=== PATIENT | female | born 1975 | race African-American/Black ===

== ENCOUNTER 2017-03-25 08:58 | Emergency (ER) | payer OTHER ==
[~2017-03-25] VITALS: Ht 160 cm; Wt 85.0 kg
[~2017-03-25 08:58] MED LIST: ALEVE220 MG PO; ASPIRIN325 MG PO; BACTRIM DS1 TAB PO; CLEOCIN VAG2 % VA; DARVOCET N-100100 - OR; LORTAB 5/3255 MG PO; LOTRISONE EX; MULTIVITAM10 OR; NEXIUM40 MG PO; NO HOME MEDS; PENICILLIN V P250 MG OR; SULFACET SOD10 % OS; TRIMOX500 MG PO; ZITHROMAX250 MG OR
[2017-03-25] MEDS ORDERED: NAPROSYN500 MG PO (10:15)
[2017-03-25 10:31] VITALS: BP 122/77
== END 2017-03-25 10:44 | disposition home or self-care (01) | DRG 563 ==
LOC: ED 08:58
DX: S53.401A Unspecified sprain of right elbow, initial encounter (principal); X58.XXXA Exposure to other specified factors, initial encounter

== ENCOUNTER 2017-04-11 18:31 | Emergency (ER) | payer OTHER ==
[~2017-04-11] VITALS: Ht 160 cm; Wt 88.0 kg
[~2017-04-11 18:31] MED LIST changes: +NAPROSYN500 MG PO
[2017-04-11 19:34] LABS: HEMATOCRIT 43.3 % (37.0-47.0); HEMOGLOBIN 14.4 g/dl (12.0-16.0); IMMATURE GRANULOCYTES 0.3 % (0.0-1.0); MEAN CELL VOLUME 86.4 fL CALC (80.0-100.0); MEAN CORPUSCULAR HGB 28.7 pG CALC (26.0-32.0); MEAN CORPUSCULAR HGB CONC 33.3 g/L CALC (32.0-36.0); NEUT# 5.51 thou/uL (2.00-7.15); RED BLOOD COUNT 5.01 mill/uL (4.20-5.60)
[2017-04-11 19:45] LABS: ALBUMIN 4.2 g/dL (3.2-5.0); ALKALINE PHOSPHATASE 99 u/l (38-126); AMYLASE 95 u/l (30-110); ANION GAP 18 (6-22 (CALC)); BILIRUBIN, TOTAL 0.5 mg/dL (0.0-1.4); BUN 12 mg/dL (7-17); BUN/CREATININE RATIO 15 (12-20 (CALC)); CALCIUM 9.4 mg/dL (8.4-10.2); CARBON DIOXIDE 23 mmol/l (22-30); CHLORIDE 105 mmol/l (95-108); CREATININE 0.8 mg/dL (0.5-1.0); GFR > 60 ML/MIN (>=60 (CALC)); GFR FOR AFR.AMER. > 60 ML/MIN (>=60 (CALC)); GLUCOSE 116 mg/dL (65-105); LIPASE 77 u/l (23-300); POTASSIUM 3.9 mmol/l (3.5-5.1); SGOT/AST 21 u/l (14-36); SGPT/ALT 30 u/l (9-52); SODIUM 142 mmol/l (137-146); TOTAL PROTEIN 7.7 g/dL (6.3-8.2)
[2017-04-11] MEDS ORDERED: ZOFRAN ODT4 MG PO (19:51)
[2017-04-11] MEDS ORDERED: PREVACID30 M3 PO (19:51)
[2017-04-11 20:00] VITALS: BP 120/70
== END 2017-04-11 20:28 | disposition home or self-care (01) | DRG 392 ==
LOC: ED 18:31
PROVIDERS: Emergency Medicine
DX: R10.13 Epigastric pain (principal); K29.70 Gastritis, unspecified, without bleeding; R50.9 Fever, unspecified; R11.0 Nausea; R19.7 Diarrhea, unspecified
CPT/HCPCS: S0164

== ENCOUNTER 2017-12-07 07:58 | Emergency (ER) | payer OTHER ==
[~2017-12-07] VITALS: Ht 162.6 cm; Wt 92.0 kg
[~2017-12-07 07:58] MED LIST changes: +PREVACID30 M3 PO; +ZOFRAN ODT4 MG PO
[2017-12-07] MEDS ORDERED: VOLTAREN1%GEL TOP (08:39)
[2017-12-07] MEDS ORDERED: AMOXICILLIN500 M2 PO (08:39)
[2017-12-07] MEDS ORDERED: CYCLOBENZAPR5 MG PO (10:17)
[2017-12-07] MEDS ORDERED: ASPERCREME LIDOCA41 TOP (10:18)
[2017-12-07 10:33] VITALS: BP 123/72
== END 2017-12-07 10:33 | disposition home or self-care (01) | DRG 153 ==
LOC: ED 07:58
DX: J02.0 Streptococcal pharyngitis (principal); M62.830 Muscle spasm of back; E11.9 Type 2 diabetes mellitus without complications

== ENCOUNTER → 2018-07-07 | Outpatient (REF) ==
[~2018-07-07] MED LIST changes: +AMOXICILLIN500 M2 PO; +ASPERCREME LIDOCA41 TOP; +CYCLOBENZAPR5 MG PO; +VOLTAREN1%GEL TOP
== END | disposition home or self-care (01) | DRG 639 ==
LOC: LAB 08:50
PROVIDERS: ATTEND Physician Assistant
DX: E11.9 Type 2 diabetes mellitus without complications (principal); E78.00 Pure hypercholesterolemia, unspecified; E66.9 Obesity, unspecified; Z01.411 Encounter for gynecological examination (general) (routine) with abnormal findings

== ENCOUNTER 2020-12-09 16:14 | Emergency (ER) | payer OTHER ==
[2020-12-09 17:17] VITALS: BP 118/83
== END 2020-12-09 17:23 | disposition home or self-care (01) | DRG 204 ==
LOC: ED 16:14
DX: R05 Cough (principal); E11.9 Type 2 diabetes mellitus without complications; Z20.822 Contact with and (suspected) exposure to COVID-19

== ENCOUNTER 2020-12-18 15:32 | Emergency (ER) | payer OTHER ==
[2020-12-18 17:38] LABS: HEMATOCRIT 41.4 % (37.0-47.0); HEMOGLOBIN 13.7 g/dl (12.0-16.0); IMMATURE GRANULOCYTES 0.2 % (0.0-5.0); MEAN CELL VOLUME 86.1 fL CALC (80.0-100.0); MEAN CORPUSCULAR HGB 28.5 pG CALC (26.0-32.0); MEAN CORPUSCULAR HGB CONC 33.1 g/dL CAL (32.0-36.0); NEUT# 3.97 thou/uL (2.00-7.15); RED BLOOD COUNT 4.81 mill/uL (4.20-5.60); RED CELL DISTRI WIDTH 12.3 % (11.5-15.5)
[2020-12-18 17:51] LABS: HCG SERUM/URINE (NEG/POS) NEGATIVE (NEGATIVE)
[2020-12-18 17:51] LABS: ALKALINE PHOSPHATASE 66 u/l (38-126); BILIRUBIN, TOTAL 0.5 mg/dL (0.0-1.4); BUN 12 mg/dL (7-17); BUN/CREATININE RATIO 12 (12-20 (CALC)); CARBON DIOXIDE 26 mmol/l (22-30); CHLORIDE 97 mmol/l (95-108); GFR 59 ML/MIN (>=60 (CALC)); GFR FOR AFR.AMER. > 60 ML/MIN (>=60 (CALC)); POTASSIUM 3.7 mmol/l (3.5-5.1); TOTAL PROTEIN 8.2 g/dL (6.3-8.2)
[2020-12-18 17:52] LABS: ANION GAP 14 (6-22 (CALC)); SGOT/AST 50 u/l (14-36); SODIUM 133 mmol/l (137-146)
[2020-12-18 18:00] VITALS: BP 132/74
== END 2020-12-18 18:49 | disposition home or self-care (01) | DRG 179 ==
LOC: ED 15:32
PROVIDERS: Family Medicine
DX: U07.1 COVID-19 (principal); E11.9 Type 2 diabetes mellitus without complications

== ENCOUNTER 2020-12-24 13:20 | Inpatient (IN) | payer OTHER ==
[~2020-12-24] VITALS: Ht 162.6 cm; Wt 182.0 kg
--- NOTE | 2020-12-24 13:52 | NUR ---
TRIAGED IN WAITING AREA.
[2020-12-24 14:27] LABS: HEMATOCRIT 42.7 % (37.0-47.0); HEMOGLOBIN 14.1 g/dl (12.0-16.0); IMMATURE GRANULOCYTES 0.5 % (0.0-5.0); MEAN CELL VOLUME 85.4 fL CALC (80.0-100.0); MEAN CORPUSCULAR HGB 28.2 pG CALC (26.0-32.0); NEUT# 5.12 thou/uL (2.00-7.15); RED CELL DISTRI WIDTH 12.3 % (11.5-15.5)
[2020-12-24 14:41] LABS: D-DIMER 0.89 mg/L (0.19-0.60)
[2020-12-24 14:42] LABS: ALKALINE PHOSPHATASE 75 u/l (38-126); ANION GAP 14 (6-22 (CALC)); BUN 18 mg/dL (7-17); BUN/CREATININE RATIO 17 (12-20 (CALC)); CARBON DIOXIDE 29 mmol/l (22-30); CHLORIDE 92 mmol/l (95-108); CREATININE 1.1 mg/dL (0.5-1.0); GFR 53 ML/MIN (>=60 (CALC)); GFR FOR AFR.AMER. > 60 ML/MIN (>=60 (CALC)); LIPASE 238 u/l (23-300); POTASSIUM 3.3 mmol/l (3.5-5.1); SGOT/AST 52 u/l (14-36); SODIUM 132 mmol/l (137-146); TOTAL PROTEIN 8.4 g/dL (6.3-8.2)
[2020-12-24 14:43] LABS: BILIRUBIN, TOTAL 0.9 mg/dL (0.0-1.4)
[2020-12-24 14:54] LABS: ACT PARTIAL THROMBO TIME 25.7 SECONDS (20.0-32.5); INTERNATIONAL NORMALIZED RATIO 1.1 RATIO (0.7-1.3); PROTHROMBIN TIME 11.6 SECONDS (9.0-12.5)
[2020-12-24] MEDS ORDERED: VITAMIN E400 UNIT PO (16:10)
[2020-12-24] MEDS ORDERED: VITAMIN C1000 MG PO (16:11)
[2020-12-24] MEDS ORDERED: FISH OIL1000 MG PO (16:11)
[2020-12-24] MEDS ORDERED: VITAMIN D1000 UNIT PO (16:11)
[2020-12-24] MEDS ORDERED: METFORMIN HCL1000 MG PO (16:12)
--- NOTE | 2020-12-24 17:00 | NUR ---
PATIENT FOUND IN BATHROOM COUGHING AND SHORT OF BREATH. WC WITH O2 BROUGHT TO BATHROOM. O2 APPLIED TO PATIENT. PATIENT WAS ABLE TO CATCH BREATH. PATIENT FINISHED IN THE BATHROOM AND WAS ASSISTED BACK TO ROOM AND PLACED BACK ON MONITOR. PATIENT STATES SHE IS FEELING BETTER.
--- NOTE | 2020-12-24 19:09 | NUR ---
REPORT TO SHARYN ROBBINS
--- NOTE | 2020-12-24 19:30 | NUR ---
PATIENT ARRIVES VIA WHEELCHAIR ACCOMPANIED BY TAX PROCESSOR GABINO, ON 2 L/MIN NC. VEGA SBECOME SOB WITH EXERTION AND HAS A CERTIFIED FIRST ASSISTANT COUGH. IS ABLE TO WALK TO THE BED. LAYS WITH HOB AT 30 DEGREES. NURSE ASSESSMENT PERFORMED. IS ALERT AND ORIENTED X4. NURSE ASSESMENT PERFORMED. NO EDEMA NOTED TO EXTREMETIES, SKIN IS DRY/WARM/INTACT. STRONG PULSES PRESENT. ACTIVE BS. DOES HAVE CRACKLES TO LOWER LOBE POSTERIOR BASES. BP WNL, SPO2 95% ON 2 L/MIN NC, DOES DESAT TO 90% WHEN HAS COUGH. WEARS GLASSES, IS INDEPENDENT AT HOME, LIVES WITH BROTHER, FEELS SAFE. WAS HERE LAST WEEK AND WAS POSITIVE WITH COVID. DOES HAVE STRESS INCONTINENCE, REQUESTS FOR TOWEL TO BE PLACED IN BETWEEN LEGS. ADVERSE REACTION WITH CAFFEINE, RAISES HER HEART RATE. ONLY MEDICATION IS METFORMIN. POC DISCUSSED. ENCOURAGED LAYING PRONE, HYDRATING AND EATING. IS DIABETIC. RAC IV INTACT, SALINE LOCKED. CALL LIGHT WITHIN REACH. EDUACTED ON SAFETY PRECAUTIONS. SELF REPOSITIONS.
--- NOTE | 2020-12-24 19:34 | NUR ---
PATIENT TAKEN BY FINAL INSPECTOR TRUCK TRAILER GABINO FRANCIS, PT AAOX4, ON O2, NO DISTRESS.
[2020-12-24 20:00] VITALS: BP 125/74
[2020-12-24 22:00] VITALS: BP 121/75
--- NOTE | 2020-12-24 22:37 | NUR ---
ACCUCHECK OBTAINED, PATIENT REQUESTED A BEDTIME SNACK. PROVIDED CRACKERS AND DIET OGLALA [place] [employer], ALSO REQUESTED ICE, PROVIDED. NO ACUTE DISTRESS SHOWN. PT DOES HAVE STRESS INCONTINENCE. CALL LIGHT WITHIN REACH.
[2020-12-24 23:00] VITALS: BP 99/52
[2020-12-25] VITALS (21 sets, daily range): BP systolic 102–131; BP diastolic 63–78
--- NOTE | 2020-12-25 00:34 | NUR ---
PATIENT BEGINS TO COUGH CONTINUOSLY, HR ST LOW 100'S. SPO2 DROPS TO LOW 80'S. PATIENT WAS ASSITED TO LAY BACK IN PRONE POSITION. O2 TITRATED TO 4 L/MIN NC, SPO2 NOW 93%. WILL CONTINUE TO MONITOR.
--- NOTE | 2020-12-25 01:51 | NUR ---
PATIENT LAYS PRONE. NO ACUTE DISTRESS SHOWN, SPO2 100%. SR ON TELEMETRY, BP WNL. CALL LIGHT WITHIN REACH.
--- NOTE | 2020-12-25 03:05 | NUR ---
PATIENT TICKET COUNTER LIGHT, REQUESTS TO USE BSC. VOIDED YELLOW/CLEAR URINE. STRESS INCONTINENCE CONTINUES. PATIETN BEGINS WITH A CONTNUOUS COUGH, DOES DESAT TO 80'S. COUGH MEDICAION PROVIDED. LAYS PRONE, CONTINUES TO BE ON 4 L/MIN NC. AFEBRILE. CALL LIGHT WITHIN REACH.
--- NOTE | 2020-12-25 05:25 | NUR ---
PATIENT LAYS IN PRONE AND REQUESTS TO SIT UP. NOW LAYS IN HIGH SUAREZ'S. HUMIDIFIER ADDED TO NASAL CANNULA, O2 WEANED TO 3 L/MIN. INCENTIVE SPIROMETER PROVIDED AND PATIENT WAS EDUCATED, PATIENT UNDERSTANDS AND AGREES. ICED WATER PROVIDED PER REQUEST.
[2020-12-25 07:53] LABS: HEMATOCRIT 38.8 % (37.0-47.0); HEMOGLOBIN 12.7 g/dl (12.0-16.0); MEAN CELL VOLUME 86.6 fL CALC (80.0-100.0); MEAN CORPUSCULAR HGB 28.3 pG CALC (26.0-32.0); MEAN CORPUSCULAR HGB CONC 32.7 g/dL CAL (32.0-36.0); NEUT# 2.3 thou/uL (2.00-7.15); RED BLOOD COUNT 4.48 mill/uL (4.20-5.60); RED CELL DISTRI WIDTH 12.3 % (11.5-15.5)
[2020-12-25 08:35] LABS: ALBUMIN 3.4 g/dL (3.2-5.0); ALKALINE PHOSPHATASE 65 u/l (38-126); BILIRUBIN, TOTAL 0.6 mg/dL (0.0-1.4); BUN 16 mg/dL (7-17); BUN/CREATININE RATIO 23 (12-20 (CALC)); CARBON DIOXIDE 27 mmol/l (22-30); CHLORIDE 96 mmol/l (95-108); CREATININE 0.7 mg/dL (0.5-1.0); GFR > 60 ML/MIN (>=60 (CALC)); GFR FOR AFR.AMER. > 60 ML/MIN (>=60 (CALC)); SGOT/AST 38 u/l (14-36); SODIUM 133 mmol/l (137-146); TOTAL PROTEIN 6.9 g/dL (6.3-8.2)
[2020-12-25 08:48] LABS: ANION GAP 14 (6-22 (CALC))
[2020-12-25 08:49] LABS: C-REACTIVE PROTEIN 13.4 mg/dL (0-0.9)
--- NOTE | 2020-12-25 10:10 | NUR ---
PT REMAINS IN ICU ON 4 LITER NASAL CANNULA. SATS ARE 93% ON 4 LITERS.
[2020-12-25] MEDS ORDERED: GABAPENTIN300 M2 PO (11:04)
[2020-12-25] MEDS ORDERED: VITAMIN D1.25 MG PO (11:12)
[2020-12-25] MEDS ORDERED: FARXIGA10 MG PO (11:48)
[2020-12-25] MEDS ORDERED: LIPITOR40 M1 PO (11:49)
--- NOTE | 2020-12-25 12:29 | NUR ---
PT IS IN ICU ON 2 LITER NASAL CANNULA. SATS OF 94%
--- NOTE | 2020-12-25 15:49 | NUR ---
PT IS BEING MONITORED IN ICU ON 2 LITER NASAL CANNULA. SATS 95%.
--- NOTE | 2020-12-25 19:15 | NUR ---
RECIEVED REPORT FROM DAY RN, PT A AND O SITTING UP IN BED, NO S/S OF DISTRESS NOTED, DENIES ANY CURRENT NEEDS
--- NOTE | 2020-12-25 21:06 | NUR ---
REPORT CALLED TO SHARYN ESTEVEZ ON MED SURG
--- NOTE | 2020-12-25 21:45 | NUR ---
PATIENT BROUGHT TO [facility] FROM ICU. TRANSFERRED TO ROOM 288.
--- NOTE | 2020-12-25 22:35 | NUR ---
ASSESSMENT DONE AT THIS TIME. PATIENT ALERT AND ORIENTED. ABLE TO MAKE NEEDS KNOWN. IV SITE TO RT AC PATENT. IV FLUIDS RESTARTED PER ORDER AT 100ML/HR. NEW PUREWICK PUT IN PLACE BY [employer] COMMUNICATIONS FACULTY MEMBER. VITAL SIGNS WERE ALSO TAKEN BY [employer] COMMUNICATION[employer] FACULTY MEMBER. PATIENT RECEIVED COUGH MEDICATION PER REQUEST. PATIENT DOES HAS A NON PRODUCTIVE COUGH PRESENT. O2 REMAINS AT 3L VIA NC. BED IN LOWEST POSITION. CALL LIGHT AND BELONGINGS WITHIN REACH.
[2020-12-26 00:55] VITALS: BP 110/68
--- NOTE | 2020-12-26 03:25 | NUR ---
GAVE PATIENT ICE PER REQUEST AND SMALL SNACK. REPOSITIONED PUREWICK. GAVE PATIENT FRESH NEW TOWEL PER REQUEST. CALL LIGHT WITHIN REACH.
--- NOTE | 2020-12-26 03:30 | NUR ---
PATIENT RESTING IN BED AT THIS TIME WITH O2 VIA NASAL CANNULA IN PLACE AT 2LPM. PATIENT STATES THAT SHE IS FEELING BETTER THAN WHEN SHE CAME IN BUT STILL HAS BAD COUGH. IV SITE TO RAC REDRESS-SITE REMAINS HEALTHY WITH IVF PATENT AND INFUSING ORDERED. PATIENT REMAINS ON ISOLATION FOR COVID. PROVIDED WITH SNACK PER PATIENT REQUEST. CALL LIGHT IN REACH. WILL CONT TO MONITOR.
[2020-12-26 04:00] VITALS: BP 111/52
[2020-12-26 05:50] LABS: HEMATOCRIT 37.5 % (37.0-47.0); HEMOGLOBIN 12.1 g/dl (12.0-16.0); IMMATURE GRANULOCYTES 1.4 % (0.0-5.0); MEAN CELL VOLUME 87.6 fL CALC (80.0-100.0); MEAN CORPUSCULAR HGB 28.3 pG CALC (26.0-32.0); MEAN CORPUSCULAR HGB CONC 32.3 g/dL CAL (32.0-36.0); NEUT# 3.35 thou/uL (2.00-7.15); RED BLOOD COUNT 4.28 mill/uL (4.20-5.60); RED CELL DISTRI WIDTH 12.3 % (11.5-15.5)
[2020-12-26 06:07] LABS: ANION GAP 9 (6-22 (CALC)); BUN 14 mg/dL (7-17); BUN/CREATININE RATIO 19 (12-20 (CALC)); C-REACTIVE PROTEIN 3.9 mg/dL (0-0.9); CARBON DIOXIDE 31 mmol/l (22-30); CHLORIDE 100 mmol/l (95-108); CREATININE 0.7 mg/dL (0.5-1.0); GFR > 60 ML/MIN (>=60 (CALC)); GFR FOR AFR.AMER. > 60 ML/MIN (>=60 (CALC)); POTASSIUM 3.5 mmol/l (3.5-5.1); SODIUM 136 mmol/l (137-146)
[2020-12-26 07:30] VITALS: BP 115/72
--- NOTE | 2020-12-26 07:30 | NUR ---
PATIENT RESTING IN BED AT THIS TIME. DOCTOR OF DENTAL SURGERY DONE SEE INTERVENTIONS. PATIENT ENCOURAGED TO PRONE WHEN SHE CAN. 02 ON 3L AND SPO2 IS 95%.. PATIENT DENIES SHORTNESS OF BREATH AND OR PAIN. PATIENT DOES HAVE A PURWICK IN PLACE DUE TO STRESS INCONTINENCE WHEN COUGHING. TELE MONITOR IN PLACE AND BEING MONITORED BY ED. PATIENT DOES EXHIBIT A NON PRODUCTIVE COUGH AND LUNG REAVES ARE DIMINISHED THROUGHOUT. SIDERAILS ARE UP CALL LIGHT WITHIN REACH.
--- NOTE | 2020-12-26 10:05 | NUR ---
IV DRESSING CHANGED AND DATED AT THIS TIME DUE TO SITE LEAKING. IV STOPPED LEAKING AND SITE FLUSHES WELL AND NO IV SITE INFECTION NOTED.
[2020-12-26 10:45] VITALS: BP 113/71
--- NOTE | 2020-12-26 11:17 | NUR ---
PATIENT LAYING IN BED AND ENCOURAGE TO GET UP TO CHAIR FOR LUNCH. PATIENT DENEIS ANY NEEDS AND OR PAIN SIDERAILS ARE UP CALL LIGHT WITHIN REACH. DR. ZHAO AND VIGNESH DE LEON ARPN IN TO SEE PATIENT AT THIS TIME. TELE MONITOR REMAINS ON AND BEING MONITORED BY ED. 02 IS ON AT 2L.
[2020-12-26 14:52] VITALS: BP 144/84
--- NOTE | 2020-12-26 15:18 | NUR ---
ASSITED PATIENT TO BEDSIDE COMMODE AT THIS TIME. PATIENT DENIES ANY PAIN ON NEEDS CURRENTLY. O2 REMAINS ON AT 3L NASAL CANNULA. TELE REMAINS IN PLACE AND BEING MONITORED BY ED. SIDERAILS ARE UP CALL LIGHT WITHIN REACH.
--- NOTE | 2020-12-26 19:35 | NUR ---
ASSESSMENT DONE AT THIS TIME. NO COMPLAINTS OF PAIN OR DISCOMFORT VOICED AT THIS TIME. IV SITE APPEARS PATENT WITH NS RUNNING AT 20ML/HR. NON PRODUCTIVE COUGH AT TIMES. NO SHORTNESS OF BREATH OBSERVED. BED IN LOWEST POSITION. CALL LIGHT AND BELONGINGS WITHIN REACH.
[2020-12-26 19:36] VITALS: BP 131/74
--- NOTE | 2020-12-26 21:35 | NUR ---
RECEIVED ALL SCHEDULED MEDICATIONS WITHOUT DIFFICULTY. PATIENT TOLERATED WELL. BED REMAINS IN LOW POSITION. CALL LIGHT AND BELONGINGS WITHIN REACH.
[2020-12-27 00:27] VITALS: BP 128/67
[2020-12-27 04:00] VITALS: BP 129/69
--- NOTE | 2020-12-27 04:56 | NUR ---
PATIENT RECEIVED PRN COUGH MEDICATION PER REQUEST. PATIENT TOLERATED WELL. NO OTHER COMPLAINTS VOICED AT THIS TIME. BED IN LOW POSITION. CALL VICENTE IN REACH.
[2020-12-27 06:04] LABS: HEMATOCRIT 38.6 % (37.0-47.0); HEMOGLOBIN 12.2 g/dl (12.0-16.0); IMMATURE GRANULOCYTES 1.7 % (0.0-5.0); MEAN CELL VOLUME 89.4 fL CALC (80.0-100.0); MEAN CORPUSCULAR HGB 28.2 pG CALC (26.0-32.0); MEAN CORPUSCULAR HGB CONC 31.6 g/dL CAL (32.0-36.0); NEUT# 4.79 thou/uL (2.00-7.15); RED BLOOD COUNT 4.32 mill/uL (4.20-5.60); RED CELL DISTRI WIDTH 12.5 % (11.5-15.5)
[2020-12-27 06:30] LABS: ALBUMIN 3.3 g/dL (3.2-5.0); ALKALINE PHOSPHATASE 65 u/l (38-126); ANION GAP 11 (6-22 (CALC)); BUN 12 mg/dL (7-17); BUN/CREATININE RATIO 16 (12-20 (CALC)); CARBON DIOXIDE 29 mmol/l (22-30); CHLORIDE 101 mmol/l (95-108); CREATININE 0.7 mg/dL (0.5-1.0); GFR > 60 ML/MIN (>=60 (CALC)); GFR FOR AFR.AMER. > 60 ML/MIN (>=60 (CALC)); POTASSIUM 3.7 mmol/l (3.5-5.1); SGOT/AST 29 u/l (14-36); SODIUM 137 mmol/l (137-146); TOTAL PROTEIN 6.8 g/dL (6.3-8.2)
[2020-12-27 06:48] LABS: BILIRUBIN, TOTAL 0.3 mg/dL (0.0-1.4)
--- NOTE | 2020-12-27 07:00 | NUR ---
RECIEVED REPORT FROM SHARYN MCCONNELL
[2020-12-27 08:47] VITALS: BP 119/68
--- NOTE | 2020-12-27 08:48 | NUR ---
PT RESTING IN SEMI FOLWERS POSITION. PT IS A/O X3. ASSESSMENT AND VITALS COMPLETED. BP 119/60, HR 94, O2 94% ON 2L NC. RESPIRATIONS ARE EVEN AND UNLABORED WITH NO DISTRESS NOTED. CRACKLES NOTED UPON ASCULTATION. HEART RHYTHM NORMAL WITH TELE IN PLACE. #22G LH INFUSING WITH IVF PER ORDER, SITE REMAINS HEALTHY AND PATENT. SKIN INTACT.PULSES STRONG. PT DENIES OF ANY PAINS OR DISCOMFORTS. ALL SAFETY PRECAUTIONS ARE IN PLACE WITH CALL LIGHT IN REACH. AIR/CONTACT PRECAUTIONS. WILL CONTINUE TO MONITOR.
--- NOTE | 2020-12-27 10:52 | NUR ---
SYL, ANRP AND DR HAN AT BEDSIDE
[2020-12-27 12:03] VITALS: BP 128/76
--- NOTE | 2020-12-27 12:15 | NUR ---
PT ASSISTED BACK INTO BED FROM SHOWER. RESPIRATIONS ARE EVEN AND UNLABORED ON 2L NC. TELE MONITORING PLACED BACK ON. #22H LH INFUSING WITH IVF PER ORDER, SITE REMAINS HEALTHY AND PATENT. PT DENIES OF ANY PAINS OR DISCOMFORTS AT THIS TIME. ALL SAFTEY PRECAUTIONS ARE IN PLACE WITH CALL LIGHT IN REACH.AIR/CONTACT PRECAUTIONS. WILL CONTINUE TO MONITOR.
--- NOTE | 2020-12-27 15:36 | NUR ---
PT RESTING IN SEMI FOWLERS POSITION . RESPIRATIONS ARE EVEN AND UNLABORED ON 2L NC. RESPIRATIONS ARE EVEN AND UNLABORED WITH NO DISTRESS NOTED. IV TO RH HAND INFUSING WITH IVF PER ORDER. SITE REMAINS HEALTHY AND PATENT. TELE MONITORING IN PLACE. PT DENIES OF ANY PAINS OR DISCOMFORTS AT THIS TIME. ALL SAFETY PRECAUTIONS ARE IN PLACE WITH CALL LIGHT IN REACH. WILL CONTINUE TO MONITOR.
[2020-12-27 15:41] VITALS: BP 139/68
[2020-12-27 19:00] VITALS: BP 125/75
--- NOTE | 2020-12-27 21:51 | NUR ---
PATIENT RESTING IN BED AT THIS TIME-AWAKE ALERT AND ORIENTEDX3. O2 VIA NASAL CANNULA IN PLACE AT 2LPM. O2 SAT IS 95%. PATIENT ON ISOLATION FOR COVID. TELE MONITOR IN PLACE LAST READING WAS SR-[id number]. IV SITE TO LEFT HAND WITH IVF NS PATENT AND INFUSING AT KVO RATE. ACCUCHECK WAS 342-COVERED WITH 4UNITS OF HUMALOG PER SLIDING SCALE COVERAGE PROTOCOL. PROVIDED WITH HS SNACK. PATIENT IS VOIDING IN BSC-YELLOW URIONE. LAST BM WAS TODAY. SAFETY PRECAUTIONS REINFORCED. CALL LIGHT IN REACH. WILL CONT TO MONITOR.
[2020-12-28] VITALS (7 sets, daily range): BP systolic 132–157; BP diastolic 63–80
--- NOTE | 2020-12-28 01:54 | NUR ---
PATIENT RESTING IN BED AT THIS TIME WITH O2 VIA NASAL CANNULA IN PLACE. TELE MONITOR IN PLACE. IVF PATENT AND INFUSING VIA LEFT HAND SITE AT KVO. REMAINS ON ISOLATION FOR COVID. CALL LIGHT IN REACH. WILL CONT TO MONITOR.
--- NOTE | 2020-12-28 04:34 | NUR ---
PATIENT RESTING IN BED AT THIS TIME-O2 VIA NASAL CANNULA IN PLACE. TELE MONITOR IN PLACE. IVF NS PATENT AND INFUSING VIA LEFT HAND SITE AT KVO RATE. CALL LIGHT IN REACH. WILL CONT TO MONITOR.
[2020-12-28 06:14] LABS: HEMATOCRIT 36.2 % (37.0-47.0); HEMOGLOBIN 11.5 g/dl (12.0-16.0); IMMATURE GRANULOCYTES 4.7 % (0.0-5.0); MEAN CELL VOLUME 88.5 fL CALC (80.0-100.0); MEAN CORPUSCULAR HGB 28.1 pG CALC (26.0-32.0); MEAN CORPUSCULAR HGB CONC 31.8 g/dL CAL (32.0-36.0); NEUT# 3.57 thou/uL (2.00-7.15); RED BLOOD COUNT 4.09 mill/uL (4.20-5.60); RED CELL DISTRI WIDTH 12.5 % (11.5-15.5)
[2020-12-28 06:40] LABS: ALKALINE PHOSPHATASE 57 u/l (38-126); ANION GAP 10 (6-22 (CALC)); BILIRUBIN, TOTAL 0.2 mg/dL (0.0-1.4); BUN 10 mg/dL (7-17); BUN/CREATININE RATIO 16 (12-20 (CALC)); C-REACTIVE PROTEIN 3.9 mg/dL (0-0.9); CARBON DIOXIDE 28 mmol/l (22-30); CHLORIDE 102 mmol/l (95-108); CREATININE 0.6 mg/dL (0.5-1.0); GFR > 60 ML/MIN (>=60 (CALC)); GFR FOR AFR.AMER. > 60 ML/MIN (>=60 (CALC)); SGOT/AST 29 u/l (14-36); SODIUM 136 mmol/l (137-146); TOTAL PROTEIN 6.1 g/dL (6.3-8.2)
--- NOTE | 2020-12-28 07:00 | NUR ---
RECIEVED REPORT FROM SHARYN CODY
--- NOTE | 2020-12-28 07:41 | NUR ---
PT RESTING IN SEMI FOWLERS POSITION. PT IS A/O X3. ASSESSMENT AND VITALS COMPLETED. BP 148/80, HR 60, O2 98% ON 2L NC. O2 REMOVED WITH NEUROPSYCHIATRIST AT BEDSIDE. O2 REMAINS 92% ON ROOM AIR. RESPIRATIONS ARE EVEN AND UNLABORED WITH NO DISTRESS NOTED. CRACKLES NOTED UPON ASCULTATING. HEART RHYTHM NORMAL WITH TELE IN PLACE. BOWEL SOUNDS ARE ACTIVE. #22G LH INFUSING WITH IVF PER ORDER, SITE REMAINS HEALTHY AND PATENT. SKIN INTACT. PT DENIES OF ANY PAINS OR DISCOMFORTS AT THIS TIME. PT RE-EDUCATED ON I.S USAGE, UP TO CHAIR AND PRONING. PT VERBALIZED UNDERSTANDING. ALL SAFETY PRECAUTIONS ARE IN PLACE WITH CALL LIGHT IN REACH. AIR/CONTACT PRECAUTIONS ARE IN PLACE WITH CALL LIGHT IN REACH. WILL CONTINUE TO MONITOR.
--- NOTE | 2020-12-28 08:05 | NUR ---
PT RESTING IN SEMI FOWLERS POSITION. O2 SAT 90-91% ON ROOM AIR. 2L NC REAPPLIED . RESPIRATIONS REMAINS EVEN AND UNLABORED 94% ON 2L NC. HUMIDIFICATION APPLIED PER PT COMPLAINT OF DRY NOSE. WILL CONTINUE TO MONITOR.
--- NOTE | 2020-12-28 11:15 | NUR ---
XRAY AT BEDSIDE
--- NOTE | 2020-12-28 11:57 | NUR ---
PT RESTING IN SEMI FOWLERS POSITION. RESPIRATIONS ARE EVEN AND UNLABORE DON 2L NC. TELE MONITORING IN PLACE. PT DENIES OF ANY PAINS OR DISCOMFORTS AT THIS TIME. ALL SAFETY PRECAUTIONS ARE IN PLACE. WILL CONTINUE TO MONITOR.
--- NOTE | 2020-12-28 15:53 | NUR ---
O2 96% ON 2L NC. O2 REMOVED. O2 87-89% ON ROOM AIR. PT STATES SHE DOES FEEL SOB. 2L NC REAPPLIED. O2 INCREASED TO 95%. RESPIRATIONS REMAINS EVEN AND UNLABORED. IV FLUIDSING INFUSING PER ORDER, SITE REMAINS HEALTHY AND PATENT. TELE MONITORING IN PLACE. PT DENIES OF ANY ADDITIONAL NEEDS. ALL SAFETY PRECAUTIONS ARE IN PLACE WITH CALL LIGHT IN REACH. WILL CONTINUE TO MONITOR.
--- NOTE | 2020-12-28 16:59 | NUR ---
REPORTED ACCUCHECK OF Saima STREETER,ANRP NOTIFIED. NEW ORDERS OBTAINED.
--- NOTE | 2020-12-28 20:00 | NUR ---
PHYSICAL ASSESMENT COMPLETE. PT CURRENTLY DENIES PAIN OR DISCOMFORT. SCHEDULED MEDICATIONS AND PRN MEDICATION ADMINISTERED, SEE E-MAR. PT DENIES ANY NEEDS AT THIS TIME. PLAN OF CARE REVIEWED, PT DENIES QUESTIONS, VERBALIZES UNDERSTANDING. ITEMS WITHIN REACH, BED LOCKED IN LOW POSITION W/ BEDRAILS UP X2. CALL VICENTE WITHIN REACH, AGREES TO CALL PRN.
[2020-12-29] VITALS: BP 120/57
--- NOTE | 2020-12-29 | NUR ---
PT LAYING IN BED WITH EYES CLOSED, APPEARS TO BE SLEEPING, APPEARS COMFORTABLE AND IN NO DISTRESS. RESPIRATIONS REGULAR AND UNLABORED. ITEMS REMAIN WITHIN REACH, CALL VICENTE REMAINS WITHIN REACH. BED REMAINS LOCKED AND IN LOW POSITION WITH BEDRAILS UP X2. WILL CONTINUE TO MONITOR.
[2020-12-29 04:00] VITALS: BP 132/76
--- NOTE | 2020-12-29 04:00 | NUR ---
PT RESTING IN BED, NO SIGNS OF DISTRESS NOTED, RESP EVEN AND UNLABORED. PT VOICES NO NEEDS OR COMPLAINTS AT THIS TIME. CALL LIGHT IN REACH, CONTINUE TO MONITOR.
[2020-12-29 05:48] LABS: HEMATOCRIT 34.5 % (37.0-47.0); HEMOGLOBIN 10.9 g/dl (12.0-16.0); MEAN CELL VOLUME 88.9 fL CALC (80.0-100.0); MEAN CORPUSCULAR HGB 28.1 pG CALC (26.0-32.0); MEAN CORPUSCULAR HGB CONC 31.6 g/dL CAL (32.0-36.0); NEUT# 4.78 thou/uL (2.00-7.15); RED BLOOD COUNT 3.88 mill/uL (4.20-5.60); RED CELL DISTRI WIDTH 12.5 % (11.5-15.5)
[2020-12-29 05:58] LABS: IMMATURE GRANULOCYTES 6.3 % (0.0-5.0)
[2020-12-29 06:13] LABS: ALBUMIN 2.8 g/dL (3.2-5.0); ALKALINE PHOSPHATASE 48 u/l (38-126); ANION GAP 10 (6-22 (CALC)); BUN 12 mg/dL (7-17); BUN/CREATININE RATIO 15 (12-20 (CALC)); CARBON DIOXIDE 28 mmol/l (22-30); CHLORIDE 103 mmol/l (95-108); CREATININE 0.8 mg/dL (0.5-1.0); GFR > 60 ML/MIN (>=60 (CALC)); GFR FOR AFR.AMER. > 60 ML/MIN (>=60 (CALC)); SGOT/AST 28 u/l (14-36); SODIUM 137 mmol/l (137-146); TOTAL PROTEIN 5.9 g/dL (6.3-8.2)
[2020-12-29 06:20] LABS: BILIRUBIN, TOTAL 0.3 mg/dL (0.0-1.4)
--- NOTE | 2020-12-29 07:30 | NUR ---
PATIENT RESTING IN BED AT THIS TIME. SIDERAILS ARE UP CALL LIGHT IS WIHTIN REACH PATIENT DENIES ANY PAIN AT THIS TIME. O2 REMAINS ON AT 2 LITERS AND SPO2 IS 94% TELE MONITORE ON AT THIS TIME AND BEING MONITORED BY ED. PATIENT HAS POSTIEOR CRACKLES NOTED. WILL CONTINUE TO MONITOR. PATIENT ENCOURAGE TO GET UP TO CHAIR.
[2020-12-29 10:40] VITALS: BP 119/62
[2020-12-29] MEDS ORDERED: ZITHROMAX250 MG PO (10:51)
[2020-12-29] MEDS ORDERED: DEXAMETHASON6 MG PO (10:51)
[2020-12-29] MEDS ORDERED: ASPIRIN REGULA325 M1 PO (11:02)
[2020-12-29] MEDS ORDERED: ROBITUSSIN AC10 ML PO (11:02)
[2020-12-29] MEDS ORDERED: GLIPIZIDE XL5 MG PO (11:06)
--- NOTE | 2020-12-29 12:03 | NUR ---
PATIENT SITTING UP IN BED AT THIS TIME. NO CRACKLES NOTED IN LUNG REAVES AT THIS TIME. PATIENT DENIES PAIN OR NEEDS AT THIS TIME. SIDERAILS ARE UP CALL LIGHT WITHIN REACH.
--- NOTE | 2020-12-29 13:45 | NUR ---
PATIENT D/C AT THIS TIME. PATIENT VERBALIZES UNDERSTANDING OF D/C INFORMATION AT THIS TIME.
[2020-12-29 15:24] VITALS: BP 157/85
--- NOTE | 2020-12-29 15:32 | NUR ---
Discharge instructions given. Patient verbalizes understanding of same. Discharged in stable condition via Wheelchair to Home with family. All belongings sent with pt. PATIENT D/C WITHI O2 AT THIS TIME.
== END 2020-12-29 15:00 | disposition home health service (06) | DRG 177 ==
LOC: ED 13:20 → ED-I 15:22 → ICU 17:53 → MS2 21:30 → ICU 21:31 → MS2 12-25 21:45
PROVIDERS: Internal Medicine; Nurse Practitioner; ADMIT Hospitalist; ATTEND Hospitalist
PROC: XW033E5 Introduction of Remdesivir Anti-infective into Peripheral Vein, Percutaneous Approach, New Technology Group 5 (ICD-10-PCS; principal; 2020-12-25)
DX: U07.1 COVID-19 (principal); J12.82 Pneumonia due to coronavirus disease 2019; J96.01 Acute respiratory failure with hypoxia; N17.9 Acute kidney failure, unspecified; E11.65 Type 2 diabetes mellitus with hyperglycemia; E87.6 Hypokalemia; E86.0 Dehydration; Z79.84 Long term (current) use of oral hypoglycemic drugs
CPT/HCPCS: J1650; Q9967

== ENCOUNTER 2021-05-06 15:52 | Emergency (ER) | payer OTHER ==
[~2021-05-06] VITALS: Ht 162.6 cm; Wt 86.5 kg
[~2021-05-06 15:52] MED LIST changes: +ASPIRIN REGULA325 M1 PO; +DEXAMETHASON6 MG PO; +FARXIGA10 MG PO; +FISH OIL1000 MG PO; +GABAPENTIN300 M2 PO; +GLIPIZIDE XL5 MG PO; +LIPITOR40 M1 PO; +METFORMIN HCL1000 MG PO; +ROBITUSSIN AC10 ML PO; +VITAMIN C1000 MG PO; +VITAMIN D1.25 MG PO; +VITAMIN D1000 UNIT PO; +VITAMIN E400 UNIT PO; +ZITHROMAX250 MG PO
[2021-05-06 16:05] VITALS: BP 136/85
[2021-05-06] MEDS ORDERED: MULTI VIT PO (16:23)
== END 2021-05-06 18:31 | disposition home or self-care (01) | DRG 93 ==
LOC: ED 15:52
DX: R20.2 Paresthesia of skin (principal); E11.9 Type 2 diabetes mellitus without complications; Z79.84 Long term (current) use of oral hypoglycemic drugs

== ENCOUNTER 2022-08-09 06:27 | Emergency (ER) | payer OTHER ==
[~2022-08-09] VITALS: Ht 162.6 cm; Wt 80.0 kg
[~2022-08-09 06:27] MED LIST changes: +MULTI VIT PO
[2022-08-09 06:35] VITALS: BP 135/86
[2022-08-09 06:45] VITALS: BP 116/93
[2022-08-09 07:00] VITALS: BP 130/83
[2022-08-09 07:16] VITALS: BP 137/91
== END 2022-08-09 07:25 | disposition home or self-care (01) | DRG 605 ==
LOC: ED 06:27
DX: S31.159A Open bite of abdominal wall, unspecified quadrant without penetration into peritoneal cavity, initial encounter (principal); W54.0XXA Bitten by dog, initial encounter; E11.9 Type 2 diabetes mellitus without complications; Z79.84 Long term (current) use of oral hypoglycemic drugs